=== PATIENT | female | born 1940 | race Caucasian/White ===

== ENCOUNTER 2018-06-10 05:30 | Emergency (ER) | payer MEDICARE, BC ==
[~2018-06-10] VITALS: Ht 167.6 cm; Wt 83.1 kg
[~2018-06-10 05:30] MED LIST: ACET-2119 PO; ASPI-974 PO; ATOR40TA71 PO; BISA10SU60 RC; COLL30OI TP; GABA-338 PO; GENT30CR TOP; HEPA100D36 SQ; HYDR-4383 PO; HYDR25TA4 PO; INSU100V13 SQ; IPRA3AMP31 IH; LANTUS SUBCUT; LIDO15CR11 TP; MAGN400O6 PO; METO25TA6 PO; MULT-933 PO; NITR0.4T SL; SENN-162 PO
[2018-06-10] MEDS ORDERED: HYDROcodone/acetaminophen 10/325mg tab PO ONE (07:30)
[2018-06-10 08:18] VITALS: BP 146/96
[2018-06-10] MEDS ORDERED: HYDR-4383 PO (09:06)
== END 2018-06-10 09:33 | disposition home or self-care (01) ==
LOC: ER 05:30
DX: S39.012A Strain of muscle, fascia and tendon of lower back, initial encounter (principal); S70.01XA Contusion of right hip, initial encounter; I25.10 Atherosclerotic heart disease of native coronary artery without angina pectoris; I11.0 Hypertensive heart disease with heart failure; I50.9 Heart failure, unspecified; E78.00 Pure hypercholesterolemia, unspecified; E11.9 Type 2 diabetes mellitus without complications; G89.29 Other chronic pain; K21.9 Gastro-esophageal reflux disease without esophagitis; Z90.710 Acquired absence of both cervix and uterus; Z98.890 Other specified postprocedural states; Z88.0 Allergy status to penicillin; Z79.82 Long term (current) use of aspirin; Z79.4 Long term (current) use of insulin; Z79.899 Other long term (current) drug therapy; W18.39XA Other fall on same level, initial encounter; Y93.89 Activity, other specified; Y92.89 Other specified places as the place of occurrence of the external cause; Y99.8 Other external cause status
CPT/HCPCS: 72100; 72125; 73502; 99284

== ENCOUNTER 2018-06-24 13:48 | Inpatient (IN) | payer MEDICARE, BC | END 2018-06-28 13:05 | disposition home or self-care (01) | LOC: ORTHO 4S 06-26 17:20 → ER 13:48 → ED HOLD 22:12 | DX: I95.1 Orthostatic hypotension (principal); E86.0 Dehydration; I50.9 Heart failure, unspecified; I11.0 Hypertensive heart disease with heart failure; E83.42 Hypomagnesemia ==

== ENCOUNTER 2019-07-30 12:37 | Emergency (ER) | payer MEDICARE, BC ==
[~2019-07-30] VITALS: Ht 167.6 cm; Wt 78.6 kg
[~2019-07-30 12:37] MED LIST changes: -ACET-2119 PO; -ASPI-974 PO; +ATOR40TA PO; -ATOR40TA71 PO; -BISA10SU60 RC; -COLL30OI TP; -GABA-338 PO; +GABA-532 PO; -GENT30CR TOP; +GLIP10TA21 PO; -HEPA100D36 SQ; -HYDR-4383 PO; -HYDR25TA4 PO; -INSU100V13 SQ; -IPRA3AMP31 IH; -LANTUS SUBCUT; -LIDO15CR11 TP; +LISI1TAB28; -MAGN400O6 PO; +METF500T PO; -METO25TA6 PO; -MULT-933 PO; -NITR0.4T SL; +OXYB5TAB16 PO; -SENN-162 PO; +TRAZ-251 PO
[2019-07-30] MEDS ORDERED: normal saline 1000ML IV soln IVB ONE (13:00)
[2019-07-30 13:38] LABS: ALANINE AMINOTRANSFERASE 14 U/L (12-78); ALBUMIN 3.4 G/DL (3.4-5.0); ALBUMIN/GLOBULIN RATIO 1.1 (1.1-1.5); ALKALINE PHOSPHATASE 65 IU/L (46-116); ANION GAP 6 (8-16); ASPARTATE AMINO TRANSFERASE 20 U/L (10-37); BILIRUBIN,TOTAL 0.6 MG/DL (0.1-1.0); BLOOD UREA NITROGEN 12 MG/DL (7-18); BUN/CREATININE RATIO 10.4 (6.6-38.0); CALCIUM 8.8 MG/DL (8.5-10.1); CHLORIDE 99 MMOL/L (99-107); CREATININE 1.15 MG/DL (0.40-0.90); GLUCOSE 225 MG/DL (70-104); POTASSIUM 4.5 MMOL/L (3.5-5.1); SODIUM 134 MMOL/L (135-145); TOTAL CARBON DIOXIDE 28.6 MMOL/L (24-32); TOTAL PROTEIN 6.4 G/DL (6.4-8.2); eGFR 46 ML/MIN
[2019-07-30 14:10] LABS: BASOPHILS % (AUTO) 0.3 % (0-1); EOSINOPHILS # (AUTO) 0.3 X10'3 (0-0.9); HEMATOCRIT 36.1 % (35.0-45.0); HEMOGLOBIN 12.1 g/dl (12.0-16.0); LYMPHOCYTES # (AUTO) 1.9 X10'3 (1.1-4.8); LYMPHOCYTES % (AUTO) 12.9 % (21-51); MEAN CORPUSCULAR HEMOGLOBIN 29.9 PG (27.0-31.0); MEAN CORPUSCULAR HGB CONC 33.4 g/dL (33.0-36.5); MEAN CORPUSCULAR VOLUME 89.6 FL (78-98); MEAN PLATELET VOLUME 9.1 FL (7.4-10.4); MONOCYTES % (AUTO) 6.7 % (2-12); NEUTROPHILS # (AUTO) 11.4 X10'3 (1.8-7.7); NEUTROPHILS % (AUTO) 78.1 % (42-75); PLATELET COUNT 281 X10'3 (140-440); RED BLOOD COUNT 4.03 X10'6 (4.20-5.60); RED CELL DISTRIBUTION WIDTH 13.8 % (11.5-14.5); WHITE BLOOD COUNT 14.6 X10'3 (4.5-11.0)
[2019-07-30 14:25] VITALS: BP 115/62
== END 2019-07-30 14:44 | disposition home or self-care (01) ==
LOC: ER 12:38
DX: R11.2 Nausea with vomiting, unspecified (principal); R19.7 Diarrhea, unspecified; R42 Dizziness and giddiness; I25.10 Atherosclerotic heart disease of native coronary artery without angina pectoris; I50.9 Heart failure, unspecified; E78.00 Pure hypercholesterolemia, unspecified; I11.0 Hypertensive heart disease with heart failure; K21.9 Gastro-esophageal reflux disease without esophagitis; E11.9 Type 2 diabetes mellitus without complications; G89.29 Other chronic pain; Z86.73 Personal history of transient ischemic attack (TIA), and cerebral infarction without residual deficits; Z95.1 Presence of aortocoronary bypass graft; Z90.710 Acquired absence of both cervix and uterus; Z98.890 Other specified postprocedural states; Z88.0 Allergy status to penicillin; Z79.899 Other long term (current) drug therapy
CPT/HCPCS: 36415; 80053; 85025; 93005; 99284; J7030

== ENCOUNTER 2020-02-17 08:42 | Inpatient (IN) | payer MEDICARE, BC ==
[~2020-02-17] VITALS: Ht 160 cm; Wt 79.4 kg
[~2020-02-17 08:42] MED LIST changes: -LISI1TAB28; +LISI1TAB51 PO; +METO25TA6 PO
--- NOTE | 2020-02-17 08:50 | NUR ---
Dr. pham temp 100.1.
[2020-02-17] MEDS ORDERED: acetaminophen 325mg tablet PO ONE (08:55)
[2020-02-17 09:42] LABS: CLARITY,URINE SLIGHTLY CLOUDY (Clear); COLOR,URINE STRAW (Yellow); GLUCOSE, URINE NEGATIVE (Neg); KETONES,URINE NEGATIVE (Neg); LEUKOCYTE ESTERASE ,URINE MODERATE (Neg); NITRITES, URINE POSITIVE (Neg); OCCULT BLOOD,URINE TRACE-INTACT (Neg); PROTEIN,URINE NEGATIVE (Neg); UROBILINOGEN,URINE 0.2 E.U/dL (0.2-1.0)
[2020-02-17 09:50] LABS: UA COLLECTION TYPE STRAIGHT CATH
[2020-02-17 09:51] LABS: BACTERIA,URINE 4+ /HPF (Neg); MUCUS STRANDS NONE SEEN /LPF (Neg); RBC,URINE 0-2 /HPF (0-2); SQUAMOUS EPITHELIAL CELL,UR FEW /LPF (FEW); WBC CLUMPS,URINE FEW /HPF (NEGATIVE); WBC,URINE 20-30 /HPF (0-4)
[2020-02-17 10:10] LABS: BASOPHILS # (AUTO) 0.1 X10'3 (0-0.2); BASOPHILS % (AUTO) 1.3 % (0-1); EOSINOPHILS # (AUTO) 0.1 X10'3 (0-0.9); EOSINOPHILS % (AUTO) 1.2 % (0-6); HEMOGLOBIN 10.6 g/dl (12.0-16.0); LYMPHOCYTES # (AUTO) 2.4 X10'3 (1.1-4.8); LYMPHOCYTES % (AUTO) 25.2 % (21-51); MEAN CORPUSCULAR HEMOGLOBIN 28.5 PG (27.0-31.0); MEAN CORPUSCULAR VOLUME 86.3 FL (78-98); MEAN PLATELET VOLUME 9.1 FL (7.4-10.4); MONOCYTES # (AUTO) 0.6 X10'3 (0-0.9); MONOCYTES % (AUTO) 6.6 % (2-12); NEUTROPHILS # (AUTO) 6.3 X10'3 (1.8-7.7); NEUTROPHILS % (AUTO) 65.7 % (42-75); PLATELET COUNT 184 X10'3 (140-440); RED BLOOD COUNT 3.71 X10'6 (4.20-5.60); RED CELL DISTRIBUTION WIDTH 14.7 % (11.5-14.5); WHITE BLOOD COUNT 9.5 X10'3 (4.5-11.0)
--- NOTE | 2020-02-17 10:13 | NUR ---
awaiting lab result.
[2020-02-17 10:20] LABS: ALANINE AMINOTRANSFERASE 15 U/L (12-78); ALBUMIN 3.1 G/DL (3.4-5.0); ALBUMIN/GLOBULIN RATIO 0.7 (1.1-1.5); ALKALINE PHOSPHATASE 61 IU/L (46-116); ANION GAP 7 (8-16); ASPARTATE AMINO TRANSFERASE 23 U/L (10-37); BILIRUBIN,TOTAL 0.7 MG/DL (0.1-1.0); BLOOD UREA NITROGEN 18 MG/DL (7-18); BUN/CREATININE RATIO 12.7 (6.6-38.0); CALCIUM 8.5 MG/DL (8.5-10.1); CHLORIDE 99 MMOL/L (99-107); CREATININE 1.42 MG/DL (0.40-0.90); GLUCOSE 116 MG/DL (70-104); POTASSIUM 3.6 MMOL/L (3.5-5.1); SODIUM 135 MMOL/L (135-145); TOTAL CARBON DIOXIDE 28.8 MMOL/L (24-32); TOTAL PROTEIN 7.5 G/DL (6.4-8.2); eGFR 36 ML/MIN
[2020-02-17 10:25] LABS: MAGNESIUM 0.9 MG/DL (1.5-2.4)
[2020-02-17] MEDS ORDERED: normal saline 1000ML IV soln IVB ONE (10:45)
[2020-02-17] MEDS ORDERED: CefTRIAXone 2gm/D5W 50ml 50 ML IV ONE (10:45)
--- NOTE | 2020-02-17 11:00 | NUR ---
BEDDING CHANGED TWICE.
[2020-02-17] MEDS: magnesium 2GM in 50ml NS 50 ML IV SCH ×2 (11:38→12:00)
[2020-02-17] MEDS ORDERED: ondansetron/PF 4mg/2ml inj IV PRN (12:25)
[2020-02-17] MEDS ORDERED: acetaminophen 325mg tablet PO PRN ×2 (12:25)
[2020-02-17] MEDS ORDERED: dextrose ORAL solution 15 GM/59 ML bottle PO PRN ×2 (12:25)
[2020-02-17] MEDS ORDERED: glucagon, human recombinant 1mg kit SUBCUT PRN (12:25)
[2020-02-17] MEDS ORDERED: mag hydrox/Alum hydrox/simeth 30ml oral suspension PO PRN (12:25)
[2020-02-17] MEDS ORDERED: dextrose 50%-water 50ml dispensing syringe IV PRN ×2 (12:25)
[2020-02-17] MEDS ORDERED: MESSAGE TO PHARMACY PO ONE (12:25)
[2020-02-17] MEDS ORDERED: morphine 2 MG/ML inj. syringe IV PRN (12:25)
[2020-02-17] MEDS ORDERED: magnesium hydroxide 30ml (MOM) UD suspension PO PRN (12:25)
[2020-02-17] MEDS ORDERED: potassium CL 10mEq/100ml bag 100 ML IV PRN (12:30)
[2020-02-17] MEDS ORDERED: magnesium Cl slow-release 64mg tablet PO PRN (12:30)
[2020-02-17] MEDS ORDERED: potassium Cl 20 mEq SR tablet PO PRN ×2 (12:30)
[2020-02-17] MEDS ORDERED: magnesium 4gm in 100ml NS 100 ML IV PRN (12:30)
[2020-02-17] MEDS: normal saline 1000ml 1,000 ML IV SCH ×2 (12:52→14:18)
[2020-02-17 13:40] LABS: HEMOGLOBIN A1C 5.6 % (4.5-6.2)
--- NOTE | 2020-02-17 13:50 | NUR ---
Patient in room PCU 3012. I have received report from ER Nurse and had the opportunity to ask questions and assume patient care. I was given patient sticky note [id number] and then ER nurse called for report, stating pt on the way.
[2020-02-17] MEDS ORDERED: MELO7.5T12 PO (13:57)
[2020-02-17 15:00] VITALS: BP 187/54
--- NOTE | 2020-02-17 15:25 | NUR ---
Patient arrived to room 3012A. Patient was brought up via wheelchair. Nurse not attended due to other pts. Another nurse helped transfer pt over then nurse into room.
--- NOTE | 2020-02-17 16:01 | NUR ---
Dr. Witt at bedside with patient and Nurse. MD is aware of pt condition. New orders, Accu check Q4, hold lantus, PT eval, X ray Left hip. Will continue to monitor.
[2020-02-17] MEDS: morphine 2 MG/ML inj. syringe IV PRN ×2 (16:10→20:55)
--- NOTE | 2020-02-17 16:43 | NUR ---
Called son, Cabrera at home. Informed patient's son on condition of pt and Plan Of care. Patient is going to be watched over tonight then home tomorrow if no major issues are found. Will continue to monitor.
[2020-02-17 18:00] VITALS: BP 166/70
--- NOTE | 2020-02-17 18:09 | NUR ---
Problems reprioritized. Patient report given, questions answered & plan of care reviewed with Rose ADAM.
--- NOTE | 2020-02-17 18:10 | NUR ---
Patient in room PCU 3012. I have received report from ANAHI Prieto and had the opportunity to ask questions and assume patient care.
[2020-02-17] MEDS: HYDROcodone/acetaminophen 5mg/325mg tablet PO PRN ×2 (18:12→23:17)
[2020-02-17] MEDS: K and/or MAG REPLACEMENT MC SCH (20:00)
[2020-02-17] MEDS: atorvastatin 20mg tablet PO SCH (20:51)
[2020-02-17] MEDS: gabapentin 300mg capsule PO SCH (20:51)
[2020-02-17] MEDS: oxybutynin 5mg tablet PO SCH (20:51)
[2020-02-17] MEDS: metoprolol tartrate 25mg tablet PO SCH (20:52)
[2020-02-17] MEDS: traZODone 50mg tablet PO SCH (20:54)
[2020-02-17] MEDS: insulin glargine (Lantus) pen - multi-dose SQ SCH (21:00)
[2020-02-17 22:00] VITALS: BP 155/48
[2020-02-18] VITALS (8 sets, daily range): BP systolic 137–187; BP diastolic 47–83
[2020-02-18] MEDS: morphine 2 MG/ML inj. syringe IV PRN (01:20)
[2020-02-18 05:33] LABS: BASOPHILS # (AUTO) 0.1 X10'3 (0-0.2); BASOPHILS % (AUTO) 0.8 % (0-1); EOSINOPHILS # (AUTO) 0.5 X10'3 (0-0.9); EOSINOPHILS % (AUTO) 4.8 % (0-6); HEMATOCRIT 24.8 % (35.0-45.0); HEMOGLOBIN 8.2 g/dl (12.0-16.0); LYMPHOCYTES # (AUTO) 2.5 X10'3 (1.1-4.8); LYMPHOCYTES % (AUTO) 26.7 % (21-51); MEAN CORPUSCULAR HEMOGLOBIN 28.5 PG (27.0-31.0); MEAN CORPUSCULAR HGB CONC 33.2 g/dL (33.0-36.5); MEAN CORPUSCULAR VOLUME 85.8 FL (78-98); MEAN PLATELET VOLUME 8.9 FL (7.4-10.4); MONOCYTES # (AUTO) 0.8 X10'3 (0-0.9); MONOCYTES % (AUTO) 8.3 % (2-12); NEUTROPHILS # (AUTO) 5.6 X10'3 (1.8-7.7); NEUTROPHILS % (AUTO) 59.4 % (42-75); PLATELET COUNT 308 X10'3 (140-440); RED CELL DISTRIBUTION WIDTH 14.9 % (11.5-14.5); WHITE BLOOD COUNT 9.4 X10'3 (4.5-11.0)
[2020-02-18 05:49] LABS: ALBUMIN 2.3 G/DL (3.4-5.0); ANION GAP 6 (8-16); BLOOD UREA NITROGEN 17 MG/DL (7-18); BUN/CREATININE RATIO 12.3 (6.6-38.0); CHLORIDE 105 MMOL/L (99-107); CREATININE 1.38 MG/DL (0.40-0.90); GLUCOSE 201 MG/DL (70-104); MAGNESIUM 1.9 MG/DL (1.5-2.4); POTASSIUM 3.8 MMOL/L (3.5-5.1); SODIUM 138 MMOL/L (135-145); TOTAL CARBON DIOXIDE 26.8 MMOL/L (24-32); eGFR 37 ML/MIN
--- NOTE | 2020-02-18 06:05 | NUR ---
Problems reprioritized. Patient report given, questions answered & plan of care reviewed with ANAHI Canseco RN.
--- NOTE | 2020-02-18 06:15 | NUR ---
Patient in room PCU 3012. I have received report from and had the opportunity to ask questions and assume patient care.
--- NOTE | 2020-02-18 07:07 | NUR ---
Patient in room PCU 3012. I have received report from Rose ADAM and had the opportunity to ask questions and assume patient care.
[2020-02-18] MEDS: CefTRIAXone/D5W-Rocephin 1gm 50 ML IV SCH (07:56)
[2020-02-18] MEDS: HYDROchlorothiazide 25mg tablet PO SCH (07:56)
[2020-02-18] MEDS: lisinopril 20mg tablet PO SCH (07:57)
[2020-02-18] MEDS: HYDROcodone/acetaminophen 5mg/325mg tablet PO PRN ×2 (07:57→12:53)
[2020-02-18] MEDS: oxybutynin 5mg tablet PO SCH ×3 (07:57→21:22)
[2020-02-18] MEDS: gabapentin 300mg capsule PO SCH ×2 (07:57→19:44)
[2020-02-18] MEDS: metoprolol tartrate 25mg tablet PO SCH ×2 (07:58→19:47)
[2020-02-18] MEDS: K and/or MAG REPLACEMENT MC SCH ×2 (08:00→19:43)
--- NOTE | 2020-02-18 09:57 | NUR ---
Dr. walden at bedside with patient and Nurse. New orders to Add [employer] 10 PRn to see if pain is more manageable. Pt to work with patient and then let MD know how she does. Will continue to monitor,..
--- NOTE | 2020-02-18 10:17 | NUR ---
Pt brought in for hypoglycemia after being found altered by son per H&P. Pt denies becoming hypoglycemic very often per H&P. BG range 107-213 mg/dL since admit. Pt with hx T2DM though current A1c is 5.6%. DM education not warranted at this time. Will continue to follow. Addendum: 02/18/20 at [address] Amended: Links added.
[2020-02-18] MEDS: HYDROcodone/acetaminophen 10/325mg tab PO PRN ×2 (10:33→16:22)
[2020-02-18] MEDS: normal saline 1000ml 1,000 ML IV SCH ×2 (10:34→18:23)
[2020-02-18] MEDS: insulin Lispro (HumaLOG) vial - multi-dose SQ SCH ×2 (13:04→19:47)
--- NOTE | 2020-02-18 13:24 | NUR ---
Paged Dr. Witt Re: Angeles Garnett Rm [id number] FYI Pt worked with PT. PT went well as for mobility but pain is not control and hinders pts ability. Please advise when DC will take place. Thank you Chantal ADAM [phone]
--- NOTE | 2020-02-18 15:47 | NUR ---
CT called for an order on patient. biomedical engineering technician recommended canceling due to the evidence that the pt had prior bilateral replacement shown on X ray. I have paged Dr. Witt to advise what he would like to proceed with. Re: Angeles Garnett RM [id number]. CT called and said with pt prior replacement we wouldn't be able to really see anything. Please advise Thank you Chantal ADAM [id number]
--- NOTE | 2020-02-18 18:00 | NUR ---
Patient in room PCU 3012. I have received report from Chantal Prieto RN. and had the opportunity to ask questions and assume patient care.
--- NOTE | 2020-02-18 18:42 | NUR ---
Problems reprioritized. Patient report given, questions answered & plan of care reviewed with Zenaida ADAM.
[2020-02-18] MEDS: insulin glargine (Lantus) pen - multi-dose SQ SCH (21:00)
[2020-02-18] MEDS: atorvastatin 20mg tablet PO SCH (21:22)
[2020-02-18] MEDS: traZODone 50mg tablet PO SCH (21:22)
--- NOTE | 2020-02-19 | NUR ---
Patient attempting to stand and move around room without assistance. Educated patient on risks of ambulating with assistance. Bed alarm on bed.
[2020-02-19 02:00] VITALS: BP 164/67
[2020-02-19] MEDS ORDERED: normal saline 1000ml 1,000 ML IV SCH (04:55)
[2020-02-19 05:54] LABS: ALBUMIN 2.6 G/DL (3.4-5.0); ANION GAP 7 (8-16); BLOOD UREA NITROGEN 19 MG/DL (7-18); BUN/CREATININE RATIO 13.7 (6.6-38.0); CALCIUM 8.5 MG/DL (8.5-10.1); CHLORIDE 102 MMOL/L (99-107); CREATININE 1.39 MG/DL (0.40-0.90); GLUCOSE 202 MG/DL (70-104); MAGNESIUM 1.7 MG/DL (1.5-2.4); POTASSIUM 4.1 MMOL/L (3.5-5.1); SODIUM 134 MMOL/L (135-145); TOTAL CARBON DIOXIDE 25.4 MMOL/L (24-32); eGFR 37 ML/MIN
--- NOTE | 2020-02-19 06:52 | NUR ---
Problems reprioritized. Patient report given, questions answered & plan of care reviewed with Jaida ADAM.
[2020-02-19 08:10] LABS: BASOPHILS # (AUTO) 0.1 X10'3 (0-0.2); BASOPHILS % (AUTO) 0.6 % (0-1); EOSINOPHILS # (AUTO) 0.4 X10'3 (0-0.9); HEMATOCRIT 28.7 % (35.0-45.0); HEMOGLOBIN 9.3 g/dl (12.0-16.0); LYMPHOCYTES # (AUTO) 2.7 X10'3 (1.1-4.8); LYMPHOCYTES % (AUTO) 28.5 % (21-51); MEAN CORPUSCULAR HGB CONC 32.5 g/dL (33.0-36.5); MEAN CORPUSCULAR VOLUME 86.1 FL (78-98); MEAN PLATELET VOLUME 8.7 FL (7.4-10.4); MONOCYTES # (AUTO) 0.6 X10'3 (0-0.9); NEUTROPHILS # (AUTO) 5.8 X10'3 (1.8-7.7); NEUTROPHILS % (AUTO) 60.9 % (42-75); PLATELET COUNT 186 X10'3 (140-440); RED BLOOD COUNT 3.33 X10'6 (4.20-5.60); RED CELL DISTRIBUTION WIDTH 14.8 % (11.5-14.5); WHITE BLOOD COUNT 9.5 X10'3 (4.5-11.0)
[2020-02-19] MEDS: CefTRIAXone/D5W-Rocephin 1gm 50 ML IV SCH (08:32)
[2020-02-19] MEDS: HYDROchlorothiazide 25mg tablet PO SCH (08:32)
[2020-02-19] MEDS: lisinopril 20mg tablet PO SCH (08:33)
[2020-02-19 08:35] VITALS: BP_SYST 190
[2020-02-19] MEDS: metoprolol tartrate 25mg tablet PO SCH (08:35)
[2020-02-19] MEDS: oxybutynin 5mg tablet PO SCH (08:35)
[2020-02-19] MEDS: gabapentin 300mg capsule PO SCH (08:36)
[2020-02-19] MEDS: insulin Lispro (HumaLOG) vial - multi-dose SQ SCH (08:47)
[2020-02-19] MEDS ORDERED: SULF1TAB49 PO (09:22)
== END 2020-02-19 11:45 | disposition home health service (06) | DRG 638 ==
LOC: ER 08:42 → ED HOLD 12:23 → PCU 3S 14:25
PROVIDERS: ADMIT Internal Medicine; ATTEND Internal Medicine
DX: E11.649 Type 2 diabetes mellitus with hypoglycemia without coma (principal); I13.0 Hypertensive heart and chronic kidney disease with heart failure and stage 1 through stage 4 chronic kidney disease, or unspecified chronic kidney disease; N39.0 Urinary tract infection, site not specified; D63.8 Anemia in other chronic diseases classified elsewhere; N17.9 Acute kidney failure, unspecified; E11.22 Type 2 diabetes mellitus with diabetic chronic kidney disease; E11.40 Type 2 diabetes mellitus with diabetic neuropathy, unspecified; E78.00 Pure hypercholesterolemia, unspecified; E78.5 Hyperlipidemia, unspecified; E83.42 Hypomagnesemia; I48.91 Unspecified atrial fibrillation; G47.00 Insomnia, unspecified; I25.10 Atherosclerotic heart disease of native coronary artery without angina pectoris; B96.20 Unspecified Escherichia coli [E. coli] as the cause of diseases classified elsewhere; W01.0XXA Fall on same level from slipping, tripping and stumbling without subsequent striking against object, initial encounter; M25.552 Pain in left hip; G89.29 Other chronic pain; K21.9 Gastro-esophageal reflux disease without esophagitis; M54.9 Dorsalgia, unspecified; T38.3X5A Adverse effect of insulin and oral hypoglycemic [antidiabetic] drugs, initial encounter; I50.9 Heart failure, unspecified; N18.3 Chronic kidney disease, stage 3 (moderate); Z79.899 Other long term (current) drug therapy; Z86.73 Personal history of transient ischemic attack (TIA), and cerebral infarction without residual deficits; Z90.710 Acquired absence of both cervix and uterus; Z95.1 Presence of aortocoronary bypass graft; Z88.0 Allergy status to penicillin; Y93.89 Activity, other specified; Y92.098 Other place in other non-institutional residence as the place of occurrence of the external cause; Y99.8 Other external cause status
CPT/HCPCS: 36415; 71045; 73502; 73700; 80048; 80053; 81001; 82948; 83036; 83605; 83735; 83880; 84132; 84145; 85025; 87040; 87077; 87081; 87088; 87186; 93005; 97162; 97530; 99285; G0378; J0696; J1815; J2270; J3475; J7030

== ENCOUNTER 2020-02-24 10:11 | Emergency (ER) | payer MEDICARE, BC ==
[~2020-02-24] VITALS: Ht 167.6 cm; Wt 80.9 kg
[~2020-02-24 10:11] MED LIST changes: -GLIP10TA21 PO; +MELO7.5T12 PO; -METF500T PO; +SULF1TAB49 PO
--- NOTE | 2020-02-24 10:30 | NUR ---
Patient states she has not eaten and feels like her sugar is low, orange juice and crackers given, patient did not complain of pain when elevating HOB for patient to eat.
--- NOTE | 2020-02-24 10:51 | NUR ---
FREDIS Rosario made aware of patient status, order for hip XRay received, will continue to monitor patient.
[2020-02-24] MEDS ORDERED: ACET-1025 PO (12:11)
[2020-02-24 12:34] VITALS: BP 132/96
[2020-02-25] MEDS ORDERED: BISM262T46 PO (00:35)
[2020-02-25] MEDS ORDERED: ACET-890 PO (00:35)
== END 2020-02-24 12:35 | disposition home or self-care (01) ==
LOC: ER 10:11
DX: S70.02XA Contusion of left hip, initial encounter (principal); M25.552 Pain in left hip; I25.10 Atherosclerotic heart disease of native coronary artery without angina pectoris; I11.0 Hypertensive heart disease with heart failure; I50.9 Heart failure, unspecified; E78.00 Pure hypercholesterolemia, unspecified; K21.9 Gastro-esophageal reflux disease without esophagitis; E11.9 Type 2 diabetes mellitus without complications; G89.29 Other chronic pain; Z86.73 Personal history of transient ischemic attack (TIA), and cerebral infarction without residual deficits; Z90.710 Acquired absence of both cervix and uterus; Z98.890 Other specified postprocedural states; Z88.0 Allergy status to penicillin; Z79.2 Long term (current) use of antibiotics; Z79.899 Other long term (current) drug therapy; X58.XXXA Exposure to other specified factors, initial encounter; Y93.89 Activity, other specified; Y92.89 Other specified places as the place of occurrence of the external cause; Y99.8 Other external cause status
CPT/HCPCS: 72170; 99283; 99284

== ENCOUNTER 2020-07-11 10:31 | Emergency (ER) | payer MEDICARE, BC ==
[~2020-07-11] VITALS: Ht 167.6 cm; Wt 80.9 kg
[~2020-07-11 10:31] MED LIST changes: +ACET-890 PO; +BISM262T46 PO; +GLIP10TA21 PO; +HYDR-4069 PO; +MAGN400C PO; -MELO7.5T12 PO; +METO-395 PO; -METO25TA6 PO; +PANT40TA54 PO; +SUCR1TAB34 PO; -SULF1TAB49 PO
[2020-07-11 10:34] VITALS: BP 179/62
[2020-07-11] MEDS ORDERED: HYDROcodone/acetaminophen 5mg/325mg tablet PO ONE (11:20)
[2020-07-11] MEDS ORDERED: celeCOXIB 100mg capsule PO ONE (11:20)
--- NOTE | 2020-07-11 11:22 | NUR ---
SHOULDER IMMOBILIZER PLACED ON RT SHOULDER WITH TECH TH
[2020-07-11] MEDS ORDERED: MELO-100 PO (11:23)
[2020-07-11] MEDS ORDERED: ACET-3068 PO (11:23)
== END 2020-07-11 11:46 | disposition home or self-care (01) ==
LOC: ER 10:32
DX: S42.201A Unspecified fracture of upper end of right humerus, initial encounter for closed fracture (principal); M25.511 Pain in right shoulder; I25.10 Atherosclerotic heart disease of native coronary artery without angina pectoris; I11.0 Hypertensive heart disease with heart failure; I50.9 Heart failure, unspecified; K21.9 Gastro-esophageal reflux disease without esophagitis; E11.9 Type 2 diabetes mellitus without complications; G89.29 Other chronic pain; Z86.73 Personal history of transient ischemic attack (TIA), and cerebral infarction without residual deficits; Z90.710 Acquired absence of both cervix and uterus; Z98.890 Other specified postprocedural states; Z88.0 Allergy status to penicillin; Z79.899 Other long term (current) drug therapy; W19.XXXA Unspecified fall, initial encounter; Y93.89 Activity, other specified; Y92.89 Other specified places as the place of occurrence of the external cause; Y99.8 Other external cause status
CPT/HCPCS: 29105; 73030; 99284

== ENCOUNTER 2021-01-09 13:33 | Emergency (ER) | payer MEDICARE, BC ==
[~2021-01-09] VITALS: Ht 167.6 cm; Wt 72.0 kg
[~2021-01-09 13:33] MED LIST changes: -ACET-890 PO; -BISM262T46 PO; +LOP12.5T PO; -MAGN400C PO; -METO-395 PO; +MULT-1085 PO; +PANT-47 PO; -PANT40TA54 PO; +PIOG30TA71 PO; -SUCR1TAB34 PO
[2021-01-09 14:02] VITALS: BP 124/69
== END 2021-01-09 20:06 | disposition left against medical advice (07) ==
LOC: ER 13:34
DX: S91.302D Unspecified open wound, left foot, subsequent encounter (principal); S31.000D Unspecified open wound of lower back and pelvis without penetration into retroperitoneum, subsequent encounter; X58.XXXD Exposure to other specified factors, subsequent encounter; Z53.21 Procedure and treatment not carried out due to patient leaving prior to being seen by health care provider